=== PATIENT | female | born 1990 | race Caucasian/White ===

== ENCOUNTER 2019-03-17 21:24 | Observation (INO) ==
[2019-03-17] MEDS ORDERED: ONDANSETRON 4 MG/2 ML VIAL IVP ONE (21:33)
[2019-03-17] MEDS ORDERED: ASPIRIN 81 MG (BABY) CHEWABLE TABLET PO ONE (21:33)
[2019-03-17] MEDS ORDERED: LORazepam 2 MG/1 ML VIAL IVP ONE (21:33)
[2019-03-17] MEDS ORDERED: NITROGLYCERIN 0.4 MG SL TAB (BOTTLE OF 3) SL ONE (21:33)
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
--- NOTE | 2019-03-17 21:37 | EKG ---
[address] [address] Measurements Intervals [place] Rate: 83 P: 73 WI: 133 QRS: 79 QRSD: 104 T: -56 QT: 367 QTc: 407 Interpretive Statements SINUS RHYTHM LEFT ATRIAL ENLARGEMENT POSSIBLE RIGHT VENTRICULAR CONDUCTION DELAY ST DEVIATION AND MODERATE T-WAVE ABNORMALITY, CONSIDER ANTEROLATERAL ISCHEMIA ST DEVIATION AND MODERATE T-WAVE ABNORMALITY, CONSIDER INFERIOR ISCHEMIA No previous ECG available for comparison Electronically Signed On 03-18-19 12:36:40 MDT by Gary Benitez [email or web address]
[2019-03-17 21:47] LABS: BASOPHILS # (AUTO) 0.03 10*3/UL; BASOPHILS % (AUTO) 0.3 % (0-1); EOSINOPHILS # (AUTO) 0.23 10*3/UL; EOSINOPHILS % (AUTO) 2.1 % (0-8); Hematocrit [HCT] 42.2 % (37.0-47.0); Hemoglobin [HGB] 14.4 g/dL (12.0-16.0); LYMPHOCYTES # (AUTO) 2.52 10*3/uL; MEAN CORPUSCULAR HGB CONC 34.1 g/dL (33-37); MEAN CORPUSCULAR VOLUME 93.8 FL (81-99); MONOCYTES # (AUTO) 1.08 10*3/UL (0.3-0.8); MONOCYTES % (AUTO) 9.9 % (5-15); NEUTROPHILS # (AUTO) 7.08 10*3/UL; NEUTROPHILS % (AUTO) 64.6 % (50-80)
[2019-03-17 21:49] LABS: PLATELET MORPHOLOGY COMMENT NORMAL MORPHOLOGY (NORM); RBC MORPHOLOGY COMMENT NORMAL MORPHOLOGY (NORM); WBC MORPHOLOGY COMMENT NORMAL MORPHOLOGY (NORM)
[2019-03-17 21:55] LABS: BLOOD UREA NITROGEN 9 mg/dL (7-22); BUN/CREATININE RATIO 12.85 (6-20); SERUM ALBUMIN 5.1 g/dL (3.5-4.8)
[2019-03-17 22:03] LABS: VENOUS PH 7.36 (7.32-7.42)
--- NOTE | 2019-03-17 22:06 | DI ---
EXAM: XR Chest, 1 View CLINICAL HISTORY: ITS.REASON cp/sob Physician Notes: Tech Comments: TECHNIQUE: Frontal view of the chest. COMPARISON: Chest radiograph on 03/06/2008 FINDINGS: Hardware: None. Lungs/pleura: Normal. No focal consolidation. No pleural effusion or pneumothorax. Heart/mediastinum: Normal. No cardiomegaly. Soft tissues: Unremarkable. Bones: No acute fracture. Upper abdomen: Normal. IMPRESSION: No acute disease identified.
[2019-03-17 23:07] VITALS: BP 124/69; RESP 20; TEMP 98.3; O2SAT 99
--- NOTE | 2019-03-17 23:29 | PDOC ---
HPI - History of Present Illness Date of Service: 03/17/19 Time of Service: 23:00 Chief Complaint: Neck pain and headaches that started today, chest pain or shortness of breath also started tonight. History of Present Illness: This is a 28 years old female with medical history significant for history of anxiety/panic attacks, chronic neck pain, lower back pain apparently been followed up by physicians in [place] she said that she had a cyst in the back of her neck and she had a cortisone shot apparently today. And she's been complaining from neck pain and headache according to her and she's been taking tramadol, Flexeril, and Tylenol she called her physician's in [place] both suggested that she goes to the ER. Apparently on her way to the ER she said she started to have pain in the chest, shortness of breath which she said she had before as she had a history of panic attacks but this one she was not hyperventilating. Down in the ER they gave her Ativan, Nitroglycerin, aspirin and apparently her new symptoms that she had resolved. She said lasted 5 minutes. However she continued to complain from pain in her neck and headaches. EKG was abnormal this was discussed with the research executive in [place] who suggested admission. Patient was rude, loud, angry and disrespectful during the interview. I asked her to be more respectful however she became more angry and decided to leave. Did not have the chance to finish the evaluation, did not have the chance to do an examination. On her way out she said all she wanted was pain medication. Past Medical History Medical History: 1. Anxiety. 2. History of chronic neck and back pain. Surgical History: Did not finish the assessment Pertinent Family History: Did not finish the assessment patient left Past Social History: She is a smoker, occlusion or drink. She said she smokes marijuana. Tobacco Use: Current Every Day Smoker Do you dip or chew tobacco: No In the Past 12 Months, Have Used or Abuse Any of the Following Substance: Marijuana Medication / Allergies Home Medications: Home Medications Medication Instructions Recorded Confirmed Type levonorgestrel 20 mcg/24 hr (5 1 insert INTRAUTERINE ONCE 06/24/18 03/17/19 History years) intrauterine device citalopram 40 mg tablet 40 mg PO QDAY 11/12/18 03/17/19 History zolpidem 10 mg tablet 10 mg PO QHS PRN 12/22/18 04/26/19 History meloxicam 7.5 mg tablet 7.5 mg PO BID PRN #60 tab 12/28/18 03/17/19 Rx sulfamethoxazole 800 1 tab PO BID #20 tab 01/02/19 03/17/19 Rx mg-trimethoprim 160 mg tablet Allergies/Adverse Reactions: Allergies Allergy/AdvReac Type Severity Reaction Status Date / Time azithromycin Allergy Intermediate RASH Verified 03/17/19 21:26 amoxicillin Allergy HIVES Verified 03/17/19 21:26 Penicillins Allergy HIVES Verified 03/17/19 21:26 Exam - Vitals Vital Signs: Vital Signs Temperature 98.3 F Temperature Source Temporal Artery Scan Pulse Rate [Pulse Oximeter] 83 Pulse Rate 77 Respiratory Rate 20 Blood Pressure [Left Arm] 131/92 Blood Pressure 124/69 Pulse Ox 99 Oxygen Delivery Method Room Air Height 5 ft 3 in Weight 116 lb Results - Labs CBC and BMP: 03/17/19 21:35 03/17/19 21:35 Assessment and Plan - Patient Problems (1) Chest pain Current Visit: Yes Status: Acute Comment: As I mentioned above did not finish the interview assessment, patient was rude, angry, hostile and loud. Patient decided to leave. She said all she wanted was pain medication as she left. Code(s): R07.9 - Chest pain, unspecified
--- NOTE | 2019-03-17 23:40 | DCSUMMARY ---
Hospitalization Summary Admit Date: 03/17/2019 Discharge Date: 03/17/19 Hospital Course: Discharge diagnoses 1. Chest pain 2. Anxiety 3. Neck pain and headaches. Hospital course Please see my admission note, assessment was incomplete as the patient decided to leave before finishing the assessment she was was rude, angry, hostile and loud. On her way out she said all she wanted was pain medication. Exam - Vitals Vital Signs: Vital Signs Temperature 98.3 F Temperature Source Temporal Artery Scan Pulse Rate [Pulse Oximeter] 83 Pulse Rate 77 Respiratory Rate 20 Blood Pressure [Left Arm] 131/92 Blood Pressure 124/69 Pulse Ox 99 Oxygen Delivery Method Room Air Height 5 ft 3 in Weight 116 lb Patient Problems - Patient Problem List (1) Chest pain Current Visit: Yes Status: Acute Code(s): R07.9 - Chest pain, unspecified Category: Medical
== END 2019-03-17 23:17 | disposition left against medical advice (07) ==
LOC: MED/SURG 21:24 → ER 21:24 → MED/SURG 22:55
PROVIDERS: ADMIT Internal Medicine; ATTEND Internal Medicine